=== PATIENT | male | born 1935 | race Two or more races ===

== ENCOUNTER 2017-02-25 18:35 | Emergency (ER) | payer OTHER, MEDICAID ==
[~2017-02-25] VITALS: Ht 167.6 cm; Wt 77.1 kg
[2017-02-25 18:42] VITALS: BP 166/83
== END 2017-02-25 20:18 | disposition left against medical advice (07) ==
LOC: EDBD 18:35 → ER 18:49
DX: Z04.1 Encounter for examination and observation following transport accident (principal); Z53.21 Procedure and treatment not carried out due to patient leaving prior to being seen by health care provider